=== PATIENT | female | born 1955 | race American Indian/Alaskan Native ===

== ENCOUNTER 2017-09-22 10:00 | Emergency (ER) | payer OTHER ==
[2017-09-22 10:49] LABS: Basophils % (Auto) 0.8 % (0.0-1.8); Eosinophils % (Auto) 0.8 % (0.0-4.3); Hematocrit 41.2 % (30.3-42.9); Hemoglobin 13.5 gm/dl (10.1-14.3); Lymphocytes # (Auto) 2.1 K/mm3 (1.2-5.4); Lymphocytes % (Auto) 35.7 % (13.4-35.0); Mean Corpuscular HGB Conc 33 % (30-34); Mean Corpuscular Hemoglobin 30 pg (28-32); Mean Corpuscular Volume 92 fl (79-97); Monocytes # (Auto) 0.4 K/mm3 (0.0-0.8); Platelet Count 361 K/mm3 (140-440); Red Blood Count 4.48 M/mm3 (3.65-5.03); Red Cell Distribution Width 13.3 % (13.2-15.2)
[2017-09-22 10:58] LABS: BUN/Creatinine Ratio 13; Blood Urea Nitrogen 9 mg/dL (7-17); Calcium 9.5 mg/dL (8.4-10.2); Hemolysis Index 6
[2017-09-22] MEDS ORDERED: NACL 0.9% 1000 ML 1,000 ML ONE (11:03)
[2017-09-22] MEDS ORDERED: HumuLIN R IV ONE (11:08)
[2017-09-22] MEDS ORDERED: NACL 0.9% 1000 ML 1,000 ML IV ONE (11:08)
--- NOTE | 2017-09-22 11:21 | Emergency Department Report ---
ED General Adult HPI - General Chief complaint: Hyperglycemia Stated complaint: HIGH BLOOD GLUCOSE Time Seen by Provider: 09/22/17 11:01 Source: patient, family, RN notes reviewed Mode of arrival: Ambulatory Limitations: No Limitations - History of Present Illness Initial comments: This is a 61-year-old female. The patient is previously unknown to this provider. She has a past medical history of diabetes, pacemaker/defibrillator, peripheral venous disease. Patient was at her outpatient vascular surgeon, getting an evaluation for an intervention, and she was found incidentally have asymptomatic hypotension. Patient reports that she takes metformin, 1000 mg twice daily, Lantus, 24 units at night, and 6 units of Humalog. She reports compliance with her medications but admits to dietary indiscretions. She has no complaints. She denies headache, neck pain, chest pain, abdominal pain, shortness of breath, urinary symptoms. Improves with: none Worsens with: none Associated Symptoms: denies other symptoms - Related Data Allergies Allergy/AdvReac Type Severity Reaction Status Date / Time No Known Allergies Allergy Verified 09/22/17 11:07 ED Review of Systems ROS: Stated complaint: HIGH BLOOD GLUCOSE Other details as noted in HPI Comment: All other systems reviewed and negative ED Past Medical Hx - Past Medical History Hx Diabetes: Yes Additional medical history: PACEMAKER/DEFIBRILLATOR - Surgical History Past Surgical History?: No Additional Surgical History: STENT PLACED IN LEFT LEG - Social History Smoking Status: Never Smoker Substance Use Type: None ED Physical Exam - General Limitations: No Limitations General appearance: alert, in no apparent distress - Head Head exam: Present: atraumatic, normocephalic - Eye Eye exam: Present: normal appearance, PERRL, EOMI. Absent: nystagmus - ENT ENT exam: Present: normal exam, normal orophraynx, mucous membranes moist, normal external ear exam - Neck Neck exam: Present: normal inspection, full ROM - Respiratory Respiratory exam: Present: normal lung sounds bilaterally. Absent: respiratory distress - Cardiovascular Cardiovascular Exam: Present: regular rate, normal rhythm, normal heart sounds. Absent: systolic murmur, diastolic murmur, rubs, gallop - GI/Abdominal GI/Abdominal exam: Present: soft, normal bowel sounds. Absent: distended, tenderness, guarding, rebound, rigid, pulsatile mass - Extremities Exam Extremities exam: Present: normal inspection, full ROM, normal capillary refill. Absent: pedal edema, joint swelling, calf tenderness - Back Exam Back exam: Present: normal inspection, full ROM. Absent: tenderness, CVA tenderness (R), paraspinal tenderness, vertebral tenderness - Neurological Exam Neurological exam: Present: alert, oriented X3, CN II-XII intact, normal gait, other (Extraocular movements intact. Tongue midline. No facial droop. Facial sensation intact to light touch in the V1, V2, V3 distribution bilaterally. 5 and 5 strength in 4 extremities.. Sensation is intact to light touch in 4 extremities.). Absent: motor sensory deficit - Psychiatric Psychiatric exam: Present: normal affect, normal mood - Skin Skin exam: Present: warm, dry, intact, normal color. Absent: rash ED Course Vital Signs 09/22/17 10:20 Temperature 98.1 F Pulse Rate 94 H Respiratory 18 Rate Blood Pressure 121/68 O2 Sat by Pulse 96 Oximetry ED Medical Decision Making - Lab Data Result diagrams: 09/22/17 10:32 09/22/17 10:32 Vital Signs 09/22/17 10:20 Temperature 98.1 F Pulse Rate 94 H Respiratory 18 Rate Blood Pressure 121/68 O2 Sat by Pulse 96 Oximetry Lab Results 09/22/17 09/22/17 09/22/17 Range/Units 10:32 10:32 10:32 WBC 6.0 (4.5-11.0) K/mm3 RBC 4.48 (3.65-5.03) M/mm3 Hgb 13.5 (10.1-14.3) gm/dl Hct 41.2 (30.3-42.9) % MCV 92 (79-97) fl MCH 30 (28-32) pg MCHC 33 (30-34) % RDW 13.3 (13.2-15.2) % Plt Count 361 (140-440) K/mm3 Lymph % (Auto) 35.7 H (13.4-35.0) % Coffey % (Auto) 6.0 (0.0-7.3) % Eos % (Auto) 0.8 (0.0-4.3) % Baso % (Auto) 0.8 (0.0-1.8) % Lymph # 2.1 (1.2-5.4) K/mm3 Coffey # 0.4 (0.0-0.8) K/mm3 Eos # 0.0 (0.0-0.4) K/mm3 Baso # 0.0 (0.0-0.1) K/mm3 Seg Neutrophils % 56.7 (40.0-70.0) % Seg Neutrophils # 3.4 (1.8-7.7) K/mm3 VBG pH 7.332 (7.320-7.420) Sodium 132 L (137-145) mmol/L Potassium 4.3 (3.6-5.0) mmol/L Chloride 91.2 L (98-107) mmol/L Carbon Dioxide 25 (22-30) mmol/L Anion Gap 20 mmol/L BUN 9 (7-17) mg/dL Creatinine 0.7 (0.7-1.2) mg/dL Estimated GFR > 60 ml/min BUN/Creatinine Ratio 13 % Glucose 504 H* (65-100) mg/dL POC Glucose (70-105) Calcium 9.5 (8.4-10.2) mg/dL 09/22/17 Range/Units 10:34 WBC (4.5-11.0) K/mm3 RBC (3.65-5.03) M/mm3 Hgb (10.1-14.3) gm/dl Hct (30.3-42.9) % MCV (79-97) fl MCH (28-32) pg MCHC (30-34) % RDW (13.2-15.2) % Plt Count (140-440) K/mm3 Lymph % (Auto) (13.4-35.0) % Coffey % (Auto) (0.0-7.3) % Eos % (Auto) (0.0-4.3) % Baso % (Auto) (0.0-1.8) % Lymph # (1.2-5.4) K/mm3 Coffey # (0.0-0.8) K/mm3 Eos # (0.0-0.4) K/mm3 Baso # (0.0-0.1) K/mm3 Seg Neutrophils % (40.0-70.0) % Seg Neutrophils # (1.8-7.7) K/mm3 VBG pH (7.320-7.420) Sodium (137-145) mmol/L Potassium (3.6-5.0) mmol/L Chloride (98-107) mmol/L Carbon Dioxide (22-30) mmol/L Anion Gap mmol/L BUN (7-17) mg/dL Creatinine (0.7-1.2) mg/dL Estimated GFR ml/min BUN/Creatinine Ratio % Glucose (65-100) mg/dL POC Glucose 438 H (70-105) Calcium (8.4-10.2) mg/dL - Medical Decision Making Differential diagnosis, including but not limited to: Hyperglycemia, acute on chronic, diabetic ketoacidosis, hyperosmolar state Assessment and plan: 61-year-old female with asymptomatic hyperglycemia, most likely secondary to dietary indiscretion, who has no symptoms. Her laboratory studies are not consistent with anion gap acidosis or hyperosmolar coma. She has no complaints at this time and has an unremarkable physical exam. Extensive discussion had with patient and family. Patient declines any intervention at this time, reports she will do a better job at eating better, and taking her medications. This is an acute asymptomatic exacerbation of her chronic medical problem without decompensation, given the patient's vital signs, history and physical, we both agreed through shared decision-making at the patient does not require emergent insulin or fluids at this time and she will monitor her progress at home. She'll be discharged home with her family member who is also in accordance with this plan Critical care attestation.: If time is entered above; I have spent that time in minutes in the direct care of this critically ill patient, excluding procedure time. ED Disposition Clinical Impression: Hyperglycemia Disposition: DC-01 TO HOME OR SELFCARE Is pt being admited?: No Does the pt Need Aspirin: No Condition: Stable Instructions: Diabetic Hyperglycemia (ED) Additional Instructions: Continue outpatient medications. Make certain to adhere to a diet as recommended by the [place] [employer]. Follow-up with the primary care doctor within the next 2-3 weeks. Return to the ER right away with new pain, worsened pain, migration of pain, fevers, chills, lethargy, irritability, projectile vomiting, change in mental status, confusion, inability to tolerate liquid feeds. Referrals: PRIMARY CARE, [Primary Care Provider] - 3-5 Days PAPI RODRÍGUEZ MD [Staff Physician] - 3-5 Days HIRAL FLETCHER MD [Staff Physician] - 3-5 Days RUBEN DOMÍNGUEZ MD [Staff Physician] - 3-5 Days DICRISTINA,ASHLEIGH, MD [Staff Physician] - 3-5 Days
[2017-09-22 11:43] VITALS: BP 112/63
== END 2017-09-22 11:40 | disposition home or self-care (01) ==
LOC: ED 10:00
DX: E11.65 Type 2 diabetes mellitus with hyperglycemia (principal)
CPT/HCPCS: 36415; 80048; 82805; 82962; 85025; 99284; J7030